=== PATIENT | male | born 1970 | race Caucasian/White ===

== ENCOUNTER 2021-09-01 12:40 | Emergency (ER) | payer OTHER ==
[~2021-09-01] VITALS: Ht 162.6 cm; Wt 81.6 kg
[2021-09-01 12:40] VITALS: BP 156/88
--- NOTE | 2021-09-01 12:45 | NUR ---
PATIENT BIBA TO BED 5.
--- NOTE | 2021-09-01 13:00 | NUR ---
51YR OLD MALE BIB EMS C/O SI . NO HOLD ON PATIENT. PT STATES HE HAS HAD SI INTENTIONS. TODAY AND YESTERDAY HE ATTEMPTED TO HANG HIMSELF FROM A TREE. HE DRINKS EVERYDAY. STATES 24OZ CANS OF BEER X3 . HAS HAD A WITHDRAWL SZ IN THE PAST. PT IS TEARFUL AND STATES WANTS TO GET HELP. PT IN GOWN AND ALL EQUIMENT FROM ROOM REMOVED. NDKA HTN ASTHMA
[2021-09-01] MEDS ORDERED: ONDANSETRON 4 MG/2 ML VIAL IVP ONE (13:20)
[2021-09-01] MEDS ORDERED: PANTOPRAZOLE 40 MG INJ VIAL IVP ONE (13:20)
[2021-09-01] MEDS ORDERED: LORazepam 2 MG/ML VIAL IVP ONE (14:00)
[2021-09-01] MEDS ORDERED: CLONIDINE HYDROCHLORIDE 0.1 MG TAB PO ONE (14:00)
[2021-09-01] MEDS: NACL 0.9% 1,000 ML IV SCH ×3 (14:14→16:31)
[2021-09-01 14:21] LABS: BASOPHILS % (AUTO) 0.6 % (0.0-2.0); EOSINOPHILS % (AUTO) 0.2 % (0.0-4.0); HEMATOCRIT 43.2 % (36-52); HEMOGLOBIN 14.9 g/dL (12.0-18.0); LYMPHOCYTES # (AUTO) 1.7 K/uL (2.0-11.5); LYMPHOCYTES % (AUTO) 25.5 % (20.5-51.1); MEAN CORPUSCULAR HEMOGLOBIN 32 pg (27-31); MEAN CORPUSCULAR HGB CONC 35 g/dL (33-37); MEAN CORPUSCULAR VOLUME 93.4 fL (80-94); MONOCYTES # (AUTO) 0.7 K/uL (0.8-1.0); MONOCYTES % (AUTO) 11.4 % (1.7-9.3); NEUTROPHILS # (AUTO) 4.1 K/uL (1.8-7.7); NEUTROPHILS % (AUTO) 62.3 % (42.2-75.2); PLATELET COUNT (AUTO) 176 K/uL (140-450); RED BLOOD CELL COUNT(AUTO) 4.62 MIL/uL (4.20-6.10); RED CELL DISTRIBUTION WIDTH 13.5 % (11.6-13.7); WHITE BLOOD COUNT (AUTO) 6.5 K/uL (4.8-10.8)
[2021-09-01 14:43] LABS: PROTHROMBIN TIME 11.3 secs (10.8-13.4)
[2021-09-01] MEDS ORDERED: cefTRIAXone 1,000 MG VIAL ONE (14:43)
[2021-09-01 14:55] LABS: ALBUMIN 3.9 g/dL (3.4-5.0); ASPARTATE AMINOTRANSFERASE 156 U/L (15-37); CARBON DIOXIDE 26.5 mmol/L (21-32); CHLORIDE 95 mmol/L (98-107); CREATININE 0.7 mg/dL (0.6-1.3); GFR ARICAN-AMERICAN 153 mL/min (>90); GLUCOSE 103 mg/dL (74-106); POTASSIUM 3.5 mmol/L (3.5-5.1); SODIUM SERUM 135 mmol/L (136-145); TOTAL BILIRUBIN 1.1 mg/dL (0.0-1.0); UREA NITROGEN, BLOOD 7 mg/dL (7-18)
[2021-09-01 15:01] LABS: ACETAMINOPHEN < 0.5 ug/ml (10-30); SALICYLATE < 2.8 mg/dL (2.8-20.0)
--- NOTE | 2021-09-01 15:29 | NUR ---
LAB AT BEDSIDE
[2021-09-01 16:06] LABS: BARBITURATE, URINE NEGATIVE ng/ml (NEG <=200); BENZODIAZEPINE, URINE NEGATIVE ng/mL (NEG <=200); CANNABINOID, URINE NEGATIVE ng/mL (NEG <=50); COCAINE, URINE NEGATIVE ng/mL (NEG <=300); OPIATE, URINE NEGATIVE ng/mL (NEG <=2000); PHENCYCLIDINE SCREEN,URINE NEGATIVE ng/mL (NEG <=25)
[2021-09-01] MEDS ORDERED: CLONIDINE HYDROCHLORIDE 0.1 MG TAB ONE (16:08)
[2021-09-01] MEDS ORDERED: LORazepam 2 MG/ML VIAL ONE (16:12)
--- NOTE | 2021-09-01 17:24 | NUR ---
PT RESTING ; RESP EVEN AND UNLABORED. SIDE RAILS UP X2 BED LOWEST POSITION.
--- NOTE | 2021-09-01 19:46 | NUR ---
PATIETN SLEEPING IN BED. RR APPEAR TO BE EVEN AND UNLABORED. ALL NEEDS MET
--- NOTE | 2021-09-01 20:57 | NUR ---
[facility]
--- NOTE | 2021-09-01 21:10 | NUR ---
DR LYNCH FROM [facility] [place] TELEMED CALLED AFTER EVALUATING PT AND REQUESTED TO SPEAK TO THE NURSE. CALLED TX TO KAYLEE CABRERA.
--- NOTE | 2021-09-01 21:12 | NUR ---
SPOKE TO DR LYNCH FROM [facility] TELEMED. DR GUZMAN PATIENT TO BE PLACED ON HOLD WITH DUAL DX. DR. LYNCH TRANSFERRED OVER TO MD HODGES TO PLACE ORDERS.
--- NOTE | 2021-09-01 22:18 | NUR ---
Wilda gomezlelo in ED - 09/01/21 at 2223 by SAV[place] [facility] PATIENT TO BE PLACED ON HOLD WITH DUAL DX. DR. LYNCH TRANSFERRED OVER TO MD HODGES TO PLACE ORDERS.
--- NOTE | 2021-09-01 22:30 | NUR ---
RECEIVED A VERBAL ORDER FROM MD HODGES VITALS SIGNS QSHIFT. MICHELLE MEDICALLY CLEARED.
--- NOTE | 2021-09-02 01:23 | NUR ---
PATIETN RESTING IN BED. BED LOW AND LOCKED. CHIP SIDE RAILS UP FOR SAFETY. ALL NEEDS MET.
--- NOTE | 2021-09-02 03:10 | NUR ---
PATIENT RESTING IN BED. BED LOW AND LOCKED. CHIP SIDE RAILS FOR SAFETY. ALL NEEDS MET.
[2021-09-02] MEDS ORDERED: IBUPROFEN 400 MG TAB PO ONE (04:30)
--- NOTE | 2021-09-02 04:31 | NUR ---
PATIETN SITTING UP AND EATING FOOD AND DRINKING JJUICE.
--- NOTE | 2021-09-02 04:32 | NUR ---
MICHELLE STATED THAT HE HAS HEADACHE PAIN 5/10. STATED IF HE CAN GET PAIN MEDS. MADE AWARE. ORDERS CARRIED OUT
[2021-09-02] MEDS ORDERED: IBUPROFEN 400 MG TAB ONE (04:34)
--- NOTE | 2021-09-02 04:40 | NUR ---
MICHELLE STATED THAT HE IS VERY ANXIOUS, FEELS WEAK AND HIS HEAD HURTS. MD FONTAINE
--- NOTE | 2021-09-02 04:41 | NUR ---
MICHELLE STATED HE FEELS SAFE HERE. HE DOESNT HAVE A PLAN TO HURT SELF OR OTHERS AT THIS TIME
--- NOTE | 2021-09-02 05:45 | NUR ---
PATIENT SLEEPING IN BED. DOESNT APPEAR TO BE IN DISTRESS. ALL NEEDS MET
--- NOTE | 2021-09-02 06:55 | NUR ---
PATIENT RESTING IN BED. BED LOW AND LOCKED. CHIP SIDE RAILS FOR SAFETY. ALL NEEDS MET.
--- NOTE | 2021-09-02 06:55 | NUR ---
PATIENT RESTING IN BED. BED LOW AND LOCKED. CHIP SIDE RAILS FOR SAFETY. ALL NEEDS MET.
--- NOTE | 2021-09-02 07:08 | NUR ---
REPORT GIVEN TO KAYLEE RYDER. TRANSFER OF CARE.
--- NOTE | 2021-09-02 07:32 | NUR ---
REPORT RECIEVED FROM RICK PAGE
--- NOTE | 2021-09-02 07:41 | NUR ---
51YR OLD MALE ON A 5150 HOLD. PT BIB VIA EMS YESTERDAY FOR SI . PT ATTEMPTS TO ATTEMPTING TO HANG HIMSELF YESTERDAY. HX OF SI ATTEMPTS. PT USES ETOH EVERYDAY. HX OF SZ DUE TO ETOH USE. 5150 HOLD OF TODAY. PT IS COMPLIANT WITH STAFF. VOLUNTARY WANTS TO GET HELP. 5/10 PAIN LEVEL . A&OX4 IN BED RESTING RESP EVEN AND UNLABORED. NO DISTRESS NOTED. 15 Q ROUNDS PER 5150 PROTCOL. SIDE RAILS UP X2 BED AT LOWEST POSITION.
[2021-09-02] MEDS ORDERED: LORazepam 2 MG/ML VIAL IM ONE (07:50)
--- NOTE | 2021-09-02 08:06 | NUR ---
PT STATES FEELING ANXIETY AND IS SHAKING WHEN PICKING UP A CUP OF WATER. ATIVIAN GIVEN IM . PT STATES FEELING BETTER.
--- NOTE | 2021-09-02 08:07 | NUR ---
PATIENT PLACED ON BEDSIDE MONITOR.
--- NOTE | 2021-09-02 08:22 | NUR ---
PENDING SOC SERVICES
--- NOTE | 2021-09-02 08:45 | NUR ---
PATIENT RESTING IN BED . ON BEDSIDE MONITOR. BREAKFAST TRAY ORDERED.
[2021-09-02] MEDS ORDERED: diphenhydrAMINE 50 MG/ML VIAL IVP ONE (10:35)
[2021-09-02] MEDS ORDERED: NACL 0.9% 1,000 ML IV ONE (10:35)
[2021-09-02] MEDS ORDERED: HALOPERIDOL IM 5 MG/ML VIAL IVP ONE (10:35)
[2021-09-02] MEDS ORDERED: diazePAM 5 MG TAB PO ONE (16:00)
[2021-09-02] MEDS ORDERED: diazePAM 5 MG TAB ONE (16:02)
--- NOTE | 2021-09-02 16:18 | NUR ---
PATIENT HAVING TREMORS , PT MEDICATED AND TOLERATED.
--- NOTE | 2021-09-02 22:09 | NUR ---
PT SLEEPING. CANNOT ASSESS
--- NOTE | 2021-09-03 03:40 | NUR ---
Patient appears to be resting comfortably in bed. Vital Signs within normal limits. Respirations even and unlabored.
--- NOTE | 2021-09-03 07:10 | NUR ---
Pt report given to ALEKSEY. Transfer of care at this time.
--- NOTE | 2021-09-03 07:15 | NUR ---
REPORT RECIEVED FROM DONG PAGE
--- NOTE | 2021-09-03 07:56 | NUR ---
PT PROVIDED WITH BREAKFAST. PT AWAKE AND EATING IN BED
--- NOTE | 2021-09-03 08:06 | NUR ---
51YR OLD MALE HERE FOR SI ON A 5150 HOLD. PENDING PLACEMENT. FAXES ARE SENT OUT FOR POSSIBLE PLACEMENT. PT IS 8/10 PAIN FOR TAM. IS SHAKEY AND HAVING SOME TREMORS. EVERY ETOH USE. HX OF SZ FROM ETOH WITHDRAWL IN THE PAST . PT IN BED RESTING . RESP EVEN AND UNLABORED. PT IS A&OX4. SIDE RAILS UP X1. BED IN LOWEST POSITION.
--- NOTE | 2021-09-03 08:08 | NUR ---
SZ PADS APPLIED TO SIDE RAIL/RAILS
[2021-09-03] MEDS ORDERED: LORazepam 2 MG/ML VIAL IVP ONE (08:35)
--- NOTE | 2021-09-03 08:46 | NUR ---
TELEPSYCH REQUEST OUT TO RE EVEVAL PATIENT FOR SI. PATIENT HAS STATED WANTS HELP WITH ETOH ABUSE. DOESNT HAVE ANY SI THOUGHTS OR PLANS, FELT THAT HE WAS SI DUE TO THE EXCESSIVE DRINKING.
--- NOTE | 2021-09-03 08:53 | NUR ---
REQUEST FOR PSYCH RE-EVALUATION SENT;CONNECT ID:[id number]
--- NOTE | 2021-09-03 12:27 | NUR ---
FAMILY AT BEDSIDE
[2021-09-03] MEDS ORDERED: ACETAMINOPHEN EXTRA STRENGTH 500 MG TAB PO ONE (14:40)
--- NOTE | 2021-09-03 16:42 | NUR ---
PT BEING EVALUATED BY TELEPSYCH AT THIS TIME
--- NOTE | 2021-09-03 17:08 | NUR ---
RE EVEALUATION OF PATIENT WITH TELEPYSCH DR CRUZ DONE AT BEDSIDE. DR CRUZ TO SPEAK WITH ER PHYSICIAN REGARDING THE HOLD RELEASE
[2021-09-03] MEDS ORDERED: LIB25 PO (17:40)
--- NOTE | 2021-09-03 18:18 | NUR ---
5151 DC . PT WILL BE DISCHARGED . PENDING DC PAPER WORK
[2021-09-03 18:31] VITALS: BP 152/64
--- NOTE | 2021-09-03 18:31 | NUR ---
Patient discharged with v/s stable. Written and verbal after care instructions given and explained. Patient alert, oriented and verbalized understanding of instructions. Ambulatory with steady gait. All questions addressed prior to discharge. ID band removed. Patient advised to follow up with PMD. Rx of LIBRIUM given. Patient educated on indication of medication including possible reaction and side effects. Opportunity to ask questions provided and answered.
--- NOTE | 2021-09-03 18:32 | NUR ---
The patient's care was reviewed and supervised by Rima Wong RN.
== END 2021-09-03 18:31 | disposition home or self-care (01) ==
LOC: MED 12:40
DX: R45.851 Suicidal ideations (principal); Z20.822 Contact with and (suspected) exposure to COVID-19; F10.129 Alcohol abuse with intoxication, unspecified; K92.0 Hematemesis; R53.1 Weakness; F32.9 Major depressive disorder, single episode, unspecified; Z98.890 Other specified postprocedural states; Z59.00 Homelessness unspecified
CPT/HCPCS: 36415; 71045; 80053; 80305; 85025; 85610; 85730; 86886; 86900; 86901; 87040; 87426; 87635; 93005; 96361; 96365; 96375; 96376; 99285; C9113; C9803; G0480; G0482; J0696; J1200; J1630; J2060; J2405; J7030; U0003